=== PATIENT | male | born 1940 | race Caucasian/White ===

== ENCOUNTER → 2024-09-09 14:39 | Outpatient (REF) | payer MEDICARE, SELFPAY | LOC: RCS 14:39 | PROVIDERS: ATTENDING PHYSICIAN Student in an Organized Health Care Education/Training Program; FAMILY PHYSICIAN Internal Medicine | DX: R60.0 Localized edema (principal) | CPT/HCPCS: 93306 ==

== ENCOUNTER → 2024-10-16 10:46 | Outpatient (REF) | payer MEDICARE, SELFPAY | LOC: HWRAD 10:46 | PROVIDERS: ATTENDING PHYSICIAN Otolaryngology; FAMILY PHYSICIAN Internal Medicine | DX: H90.A12 Conductive hearing loss, unilateral, left ear with restricted hearing on the contralateral side (principal) | CPT/HCPCS: 70480 ==

== ENCOUNTER → 2024-10-22 14:36 | Outpatient (REF) | payer MEDICARE, SELFPAY | LOC: RAD 14:36 | PROVIDERS: ATTENDING PHYSICIAN Student in an Organized Health Care Education/Training Program; FAMILY PHYSICIAN Internal Medicine | DX: I73.9 Peripheral vascular disease, unspecified (principal) | CPT/HCPCS: 93922; 93925 ==

== ENCOUNTER → 2024-12-13 12:56 | Outpatient (REF) | payer MEDICARE, SELFPAY | LOC: RAD 12:56 | PROVIDERS: ATTENDING PHYSICIAN Internal Medicine | DX: R60.0 Localized edema (principal) | CPT/HCPCS: 93970 ==